=== PATIENT | female | born 1955 | race Caucasian/White ===

== ENCOUNTER 2022-09-11 10:16 | Emergency (ER) | payer MEDICARE, OTHER ==
[~2022-09-11] VITALS: Ht 175.3 cm; Wt 110.0 kg
--- OUTSIDE RECORDS SUMMARY | 2022-09-11 10:20 | XMS ---
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 Security Seismograph Recorder Events No recent Security Events currently on file CRITERIA MET - [facility] CARE PROVIDERS There are no care providers on record at this time. Alex has no Care Guidelines for this patient. Kaiden VISIT COUNT (12 MO.) 1 ROMINA Randolph TOTAL 1 NOTE: Visits indicate total known visits. ED/C VISIT TRACKING (12 MO.) 09/11/2022 10:17 [facility]INA [facility] [place] TYPE: Emergency COMPLAINT: - LEG PAIN INPATIENT VISIT TRACKING (12 MO.) No inpatient visits to display in this time frame [email or web address]
[2022-09-11] MEDS ORDERED: DEPAKOTE500 MG PO ×2 (11:47→11:48)
[2022-09-11] MEDS ORDERED: PERCOCET 5-3251 EACH PO (11:50)
[2022-09-11] MEDS ORDERED: PALIPERIDONE ER3 MG PO (11:51)
== END 2022-09-11 14:30 | disposition home or self-care (01) ==
LOC: ED 10:16
DX: G89.29 Other chronic pain (principal); M79.604 Pain in right leg; M79.605 Pain in left leg; Z88.0 Allergy status to penicillin; Z88.8 Allergy status to other drugs, medicaments and biological substances; Z79.899 Other long term (current) drug therapy
CPT/HCPCS: 36415; 51701; 80053; 81003; 82553; 85025; 99283-25

== ENCOUNTER 2023-06-20 17:00 | Emergency (ER) | payer MEDICARE, OTHER ==
[~2023-06-20] VITALS: Ht 175.3 cm; Wt 83.0 kg
[~2023-06-20 17:00] MED LIST: DEPAKOTE500 MG PO; PALIPERIDONE ER3 MG PO; PERCOCET 5-3251 EACH PO
--- OUTSIDE RECORDS SUMMARY | 2023-06-20 17:02 | XMS ---
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 Events No recent Security Events currently on file CRITERIA MET - PDMP CARE PROVIDERS Adelaida Oleary Health Unit Clerk/Bearing Maker 02/13/2023-Current PHONE: [phone] KANDI DEL TORO Nurse Practitioner: Family Current PHONE: [phone] DHARMESH LEMONS Curtain Inspector: Foot \T\ Ankle Surgery Current PHONE: [phone] MAXIMINO CHAVARRIA Curtain Inspector Coleen Chavez PHONE: [phone] YANET LAL Internal Medicine Current PHONE: [phone] ROGE RIVAS Nurse Practitioner: Family Current PHONE: [phone] CARRIE DE LA O Nurse Practitioner: Family Current PHONE: Unknown LITZY HILL Internal Medicine Current PHONE: [phone] EL BHAKTA Family Medicine Current PHONE: Unknown АЛЕКСАНДР ALBARRAN I. Physician Wet Room Worker Current PHONE: Unknown ANNETTE HAMLIN Nurse Practitioner: Psychiatric/Mental Health Current PHONE: [phone] GAEL WADE Nurse Practitioner Current PHONE: Unknown GARETT CALDERA Nurse Practitioner Coleen HELMS PHONE: [phone] TYSHAWN [facility] Current PHONE: Unknown ANDRES JARAMILLO Family Medicine Current PHONE: [phone] [address] Nurse Practitioner: Family Current PHONE: Unknown RACHEL ZAMORA Physician Wet Room Worker Current PHONE: Unknown CANDELARIO BRUCE Family Medicine Current PHONE: Unknown Care Guidelines exist for the following facilities: [facility] ( 05/20/2019 ) Kaiden VISIT COUNT (12 MO.) 2 ROMINA Randolph TOTAL 2 NOTE: Visits indicate total known visits. 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
[2023-06-20 19:09] VITALS: BP 110/76
== END 2023-06-20 19:15 | disposition home or self-care (01) ==
LOC: ED 17:00
DX: S70.02XA Contusion of left hip, initial encounter (principal); I10 Essential (primary) hypertension; W06.XXXA Fall from bed, initial encounter; Z88.0 Allergy status to penicillin; Z88.8 Allergy status to other drugs, medicaments and biological substances
CPT/HCPCS: 73502; 73700; 99284-25

== ENCOUNTER 2023-09-03 13:16 | Emergency (ER) | payer MEDICARE, OTHER ==
[~2023-09-03] VITALS: Ht 175.3 cm; Wt 83.0 kg
--- OUTSIDE RECORDS SUMMARY | 2023-09-03 13:18 | XMS ---
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: [facility] PHONE: Unknown ROGE RIVAS Nurse Practitioner: Family Current PHONE: [phone] CARRIE DE LA O Nurse Practitioner: Family Current PHONE: Unknown LITZY HILL Internal Medicine Current PHONE: [phone] EL BHAKTA [facility] Current PHONE: Unknown АЛЕКСАНДР ALBARRAN I. Physician Health Safety Engineer Current PHONE: Unknown ANNETTE HAMLIN Nurse Practitioner: Psychiatric/Mental Health Current PHONE: [phone] GAEL WADE Nurse Isis Current PHONE: Unknown GARETT CALDERA Nurse Practitioner Coleen HELMS PHONE: [phone] TYSHAWN [facility] Current PHONE: Unknown ANDRES JARAMILLO Family Medicine Current PHONE: [phone] [address] Nurse Practitioner: Family Current PHONE: Unknown RACHEL ZAMORA Current PHONE: Unknown CANDELARIO BRUCE Family Medicine Current PHONE: Unknown Care Guidelines exist for the following facilities: [facility] ( 05/20/2019 ) [place] [facility]12 MO.) [facility] NOTE: Visits indicate total known visits. ED/UCC VISIT TRACKING (12 MO.) 09/03/2023 13:16 ROMINA [facility] TYPE: Emergency COMPLAINT: - POSS OD 06/20/2023 17:01 ROMINA [facility]ickey OR TYPE: Emergency COMPLAINT: - FALL W/INJURY DIAGNOSES: - Allergy status to other drugs, medicaments and biological substances - Allergy status to penicillin - Contusion of left hip, initial encounter - Essential (primary) hypertension - Fall from bed, initial encounter - Pain in left hip 09/11/2022 10:17 ROMINA [facility]ic[facility] [place] TYPE: Emergency COMPLAINT: - LEG PAIN DIAGNOSES: - Allergy status to other drugs, medicaments and biological substances - Allergy status to penicillin - Other chronic pain - 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
[2023-09-03] MEDS ORDERED: NALOXONE HCL 2 MG/2 ML SYR ONE (13:32)
[2023-09-03] MEDS ORDERED: SODIUM CHLORIDE 0.9% 1,000 ML IV ONE (13:45)
[2023-09-03] MEDS ORDERED: SODIUM CHLORIDE 0.9% 1,000 ML IV PRN (13:45)
[2023-09-03] MEDS ORDERED: NALOXONE HCL 2 MG/2 ML SYR IV ONE (13:45)
[2023-09-03 13:49] LABS: BASOPHILS 0.4 % (0-2); EOSINOPHILS 1.3 % (0-6); HEMATOCRIT 36.3 % (35.0-50.0); HEMOGLOBIN 12.3 g/dL (12.0-18.0); LYMPHOCYTES 24.9 % (24-44); MCH 33.4 (27-36); MCHC 33.9 g/dl (30-36); MCV 98.4 fl (81-99); MONOCYTES 12.3 % (0-12); NEUTROPHILS 61.1 % (39-80); PLATELET COUNT 171 K/uL (140-440); RBC 3.69 M/ul (4.3-5.7); RDW 13.1 (10.5-15.0)
[2023-09-03 13:58] LABS: ALBUMIN 3.3 g/dL (3.4-5.0); ALBUMIN/GLOBULIN RATIO 0.92 (1.1-2.4); BILIRUBIN, TOTAL 0.3 ng/dL (0.2-1.0); BUN/CREATININE RATIO 11.71 (6.0-28.6); CALCIUM 9.7 mg/dL (8.5-10.1); CREATININE, SERUM 1.11 mg/dL (0.55-1.02); PROTEIN, TOTAL 6.9 g/dL (6.4-8.2)
[2023-09-03 14:22] LABS: VALPROIC ACID 81 ug/mL (50-100)
[2023-09-03 14:33] LABS: INFLUENZA B NAA NEGATIVE (NEGATIVE); RESPIRATORY SYNCYTIAL VIR NAA NEGATIVE (NEGATIVE)
[2023-09-03] MEDS ORDERED: DULOXETINE HCL60 MG PO (14:56)
[2023-09-03] MEDS ORDERED: FUROSEMIDE20 MG PO (14:56)
[2023-09-03] MEDS ORDERED: LOSARTAN POTAS100 MG PO (14:57)
[2023-09-03] MEDS ORDERED: GABAPENTIN300 MG PO (14:57)
[2023-09-03] MEDS ORDERED: NICORETTE2 M1 BUCCAL (14:58)
[2023-09-03] MEDS ORDERED: NARCAN4 MG NS (14:58)
[2023-09-03] MEDS ORDERED: OXYCODONE HCL5 MG PO (14:59)
[2023-09-03] MEDS ORDERED: INVEGA9 MG PO (14:59)
[2023-09-03] MEDS ORDERED: AMLODIPINE BESY10 MG PO (14:59)
[2023-09-03] MEDS ORDERED: SUBOXONE 2 MG-1 EAC2 SL (15:00)
[2023-09-03 15:12] LABS: BILIRUBIN, URINE NEGATIVE (negative); BLOOD/HGB, URINE NEGATIVE (Negative); KETONE, URINE NEGATIVE (Negative); LEUK ESTERASE, URINE NEGATIVE (negative); NITRITE, URINE NEGATIVE (negative); PH, URINE 6.5 (5-7)
[2023-09-03 15:33] LABS: AMPHETAMINES, URINE NEGATIVE (NEGATIVE); BARBITURATES, URINE NEGATIVE (NEGATIVE); BENZODIAZEPINE, URINE NEGATIVE (NEGATIVE); BUPRENORPHINE, URINE POSITIVE (NEGATIVE); CANNABINOID, URINE NEGATIVE (NEGATIVE); COCAINE, URINE NEGATIVE (NEGATIVE); ECSTASY, URINE NEGATIVE (NEGATIVE); FENTANYL, URINE NEGATIVE (NEGATIVE); METHADONE, URINE NEGATIVE (NEGATIVE); OPIATES, URINE NEGATIVE (NEGATIVE); OXYCODONE, URINE POSITIVE (NEGATIVE); PHENCYCLIDINE, URINE NEGATIVE (NEGATIVE)
[2023-09-03 17:10] VITALS: BP 108/76
== END 2023-09-03 17:10 | disposition home or self-care (01) ==
LOC: ED 13:16
PROVIDERS: Emergency Medicine
DX: R40.0 Somnolence (principal); I10 Essential (primary) hypertension; F20.9 Schizophrenia, unspecified; E78.5 Hyperlipidemia, unspecified; I73.9 Peripheral vascular disease, unspecified; G62.9 Polyneuropathy, unspecified; Z79.899 Other long term (current) drug therapy; Z88.0 Allergy status to penicillin; Z88.8 Allergy status to other drugs, medicaments and biological substances
CPT/HCPCS: 36415; 70450; 80053; 80164; 80307; 81003; 85025; 87502; 96374; 99285-25; J2310; J7030; U0002